=== PATIENT | male | born 1980 | race Two or more races ===

== ENCOUNTER 2025-06-05 18:25 | Emergency (ER) | payer OTHER ==
[~2025-06-05] VITALS: Ht 172.7 cm; Wt 74.8 kg
[2025-06-05] MEDS ORDERED: 0.9 % SODIUM CHLORIDE 1,000 ML IV SCH (19:45)
[2025-06-05] MEDS ORDERED: KETOROLAC TROMETHAMINE 30 MG VIAL IV ONE (19:45)
[2025-06-05 20:01] LABS: BASO % 0.2 % (0.1-1.2); EOS # 0.11 (0.04-0.54); EOS % 0.9 % (0.7-7.0); LYMPH # 2.55 (1.18-3.74); LYMPH % 20.4 % (19.3-53.1); MEAN PLATELET VOLUME 11.40 fl (9.4-12.4); MONO # 1.07 (0.24-0.82); MONO % 8.6 % (4.7-12.5); NEUT # 8.68 (1.56-6.13); NEUT % 69.6 % (34.0-71.1); RED CELL DISTRIBUTION WIDTH 12.8 % (11.6-14.4)
[2025-06-05 20:30] LABS: ALT/SGPT 26.0 U/L (12-78); AST/SGOT 16.0 U/L (15-37); BILIRUBIN TOTAL 0.43 mg/dL (0.3-1.2); BUN CREA RATIO 14.0 (7.0-25.0); CREATININE SERUM 0.69 mg/dL (0.70-1.30); GFR 123.99; GLOBULINA 4.3 G/DL (2.4-3.5); GLUCOSE FASTING 95.0 mg/dL (65-100); OSMOLALITY SERUM 276.0 MOSM/KG (275-295)
[2025-06-05 22:15] LABS: URINE APPEARANCE Clear; URINE BILIRRUBIN Negative (NEGATIVE); URINE BLOOD Negative; URINE COLOR Yellow; URINE GLUCOSE Negative (NEGATIVE); URINE KETONE 15 (NEGATIVE); URINE LEUKOCYTE Negative; URINE NITRATE Negative; URINE PROTEIN Negative (NEGATIVE); URINE UROBILINOGEN 0.2 E.U./dl
[2025-06-05 22:18] LABS: URINE BACTERIA 4.7 uL (0.0-1933); URINE EPITHELIAL CELLS 1.5 uL (0.0-38.8); URINE WBC 2.1 uL (0.0-23.2)
[2025-06-05 22:21] LABS: URINE CAST 0.14 uL (0.0-1.40); URINE RBC 1.1 uL (0.0-20.8)
[2025-06-05] MEDS ORDERED: DICLOFENAC SODI75 MG PO (23:04)
== END 2025-06-05 23:41 | disposition home or self-care (01) ==
LOC: ER 18:25
PROVIDERS: General Practice
DX: R10.9 Unspecified abdominal pain (principal)